=== PATIENT | male | born 1995 | race African-American/Black ===

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

== ENCOUNTER 2017-07-13 15:33 | Emergency (ER) | payer SELFPAY ==
[~2017-07-13] VITALS: Ht 177.8 cm; Wt 88.9 kg
[~2017-07-13 15:33] MED LIST: SUMA100T3; TRAZ150T72
--- OUTSIDE RECORDS SUMMARY | 2017-07-13 15:38 | XMS REPORT ---
Author JIMBO Phelps eClinicalWorks Address Unknown Phone Unavailable Care Team Providers Care Boat Outfitting Supervisor Name Role Phone JIMBO BOYCE CP Unavailable Allergies, Adverse Reactions, Alerts Substance Reaction Event Type N.K.D.A. Info Not Available Non Drug Allergy Problems Problem Type Condition Code Onset Dates Condition Status Problem Attention deficit hyperactivity disorder (ADHD), predominantly inattentive type F90.0 Active Problem Primary insomnia F51.01 Active Problem Encounter for dental examination Z01.20 Active Problem Migraine without aura and without status migrainosus, not intractable G43.009 Active Assessment Encounter for dental examination Z01.20 Active Medications Medication Code System Code Instructions Start Date End Date Status Dosage Methylphenidate HCl [facility] [address]-52 10 mg Orally Twice a day Jul 04, 2016 1 tablet Imitrex [facility] [address]-80 100 MG Orally Once a day Jul 04, 2016 1 tablet as needed Trazodone HCl [facility] [address]-22 150 MG Orally Once a day Jul 04, 2016 1 tablet at bedtime as needed Procedures Procedure Coding System Code Date BITEWINGS - FOUR FILMS CPT-4 D0274 Jul 29, 2016 PANORAMIC FILM SEE ALSO CODE 61059 CPT-4 D0330 Jul 29, 2016 COMP ORAL EVALUATION - NEW/EST PT CPT-4 D0150 Jul 29, 2016 PROPHYLAXIS - ADULT CPT-4 D1110 Jul 29, 2016 PROPHYLAXIS - ADULT CPT-4 D1110 Jul 29, 2016 TOPICAL FLUORIDE VARNISH CPT-4 D1206 Jul 29, 2016 Vital Signs Date/Time: Jul 29, 2016 Blood Pressure Diastolic 63 mmHg Blood Pressure Systolic 107 mmHg Cardiac Monitoring Heart Rate 88 bpm Results No Known Results Summary Purpose eClinicalWorks Submission
--- OUTSIDE RECORDS SUMMARY | 2017-07-13 15:38 | XMS REPORT ---
Author Author ROSY GREER Organization eClinicalWorks Address Unknown Phone Unavailable Care Team Providers Care Sound Effects Supervisor Name Role Phone ROSY GREER CP Unavailable Allergies, Adverse Reactions, Alerts Substance Reaction Event Type N.K.D.A. Info Not Available Non Drug Allergy Problems Problem Type Condition Code Onset Dates Condition Status Problem Primary insomnia F51.01 Active Problem Migraine without aura and without status migrainosus, not intractable G43.009 Active Problem Attention deficit hyperactivity disorder (ADHD), predominantly inattentive type F90.0 Active Assessment Screening examination for sexually transmitted disease Z11.3 Active Medications Medication Code System Code Instructions Start Date End Date Status Dosage Imitrex [facility] [address]-22 100 MG Orally Once a day Jul 04, 2016 1 tablet as needed Trazodone HCl [facility] [address]-55 150 MG Orally Once a day Jul 04, 2016 1 tablet at bedtime as needed Methylphenidate HCl [facility] [address]-24 10 mg Orally Twice a day Jul 04, 2016 1 tablet Procedures Procedure Coding System Code Date Office Visit, Est Pt., Level 3 CPT-4 03982 Jul 14, 2016 VENIPUNCT, ROUTINE* CPT-4 99382 Jul 14, 2016 No Charge CPT-4 52901 Jul 14, 2016 Vital Signs Date/Time: Jul 14, 2016 Cardiac Monitoring Heart Rate 64 bpm Weight 203 lbs Height 70 in Wt Percentile 94.12 % BMI 29.12 Index Blood Pressure Diastolic 82 mmHg Blood Pressure Systolic 132 mmHg BMIPercentile 94.25 % Results Name Result Date Reference Range Unit Abnormality Flag ROUTINE VENIPUNCTURE Summary Purpose eClinicalWorks Submission
--- OUTSIDE RECORDS SUMMARY | 2017-07-13 15:38 | XMS REPORT ---
Author Author YANNA TORRES Organization eClinicalWorks Address Unknown Phone Unavailable Care Team Providers Care Sonoscope Operator Name Role Phone YANNA TORRES CP Unavailable Allergies No Known Allergies Problems Problem Type Condition Code Onset Dates Condition Status Problem Primary insomnia F51.01 Active Problem Migraine without aura and without status migrainosus, not intractable G43.009 Active Problem Attention deficit hyperactivity disorder (ADHD), predominantly inattentive type F90.0 Active Medications Medication Code System Code Instructions Start Date End Date Status Dosage Methylphenidate HCl [facility] [address]-38 10 mg Orally Twice a day Jul 04, 2016 1 tablet Results No Known Results Summary Purpose eClinicalWorks Submission
--- OUTSIDE RECORDS SUMMARY | 2017-07-13 15:38 | XMS REPORT ---
Author Author ROSY GREER Organization [facility] Address [address] [place] [address] Care Team Providers Care Chrome Plater Helper Name Role Phone AMEE GREERISTIN Unavailable PROBLEMS Type Condition ICD9-CM Code HHT14-XW Code Onset Dates Condition Status SNOMED Code Problem Encounter for dental examination Z01.20 Active 361798959 Problem Attention deficit hyperactivity disorder (ADHD), predominantly inattentive type F90.0 Active 51304539 Problem Primary insomnia F51.01 Active 6707519 Problem Migraine without aura and without status migrainosus, not intractable G43.009 Active 653442548 ALLERGIES Substance Reaction Event Type Date Status N.K.D.A. Unknown Non Drug Allergy Sep, Unknown SOCIAL HISTORY No smoking Hx information available PLAN OF CARE Activity Details Follow Up prn Reason: VITAL SIGNS Height 70 in 2016-09-20 Weight 208.0 lbs 2016-09-20 Temperature 98.1 degrees Fahrenheit 2016-09-20 Heart Rate 80 bpm 2016-09-20 Respiratory Rate 18 2016-09-20 BMI 29.84 kg/m2 2016-09-20 Blood pressure systolic 128 mmHg 2016-09-20 Blood pressure diastolic 84 mmHg 2016-09-20 MEDICATIONS Medication Instructions Dosage Frequency Start Date End Date Duration Status Trazodone HCl 150 MG Orally Once a day 1 tablet at bedtime as needed 24h Jul, 30 day(s) Active Imitrex 100 MG Orally Once a day 1 tablet as needed 24h Jul, Active Methylphenidate HCl 10 mg Orally Twice a day 1 tablet 12h Jul, Active Amoxicillin 500 MG Orally every 12 hrs 1 capsule 12h Sep, Sep, 10 day(s) Active RESULTS Name Result Date Reference Range STREP A (IN HOUSE) 2016-09-20 STREP A positive Control + Lot # [id number] Exp date february 16 PROCEDURES Procedure Date Ordered Related Diagnosis Body Site STREP A ASSAY W/OPTIC Sep 20, 2016 Office Visit, Est Pt., Level 3 Sep 20, 2016 IMMUNIZATIONS No Known Immunizations
--- OUTSIDE RECORDS SUMMARY | 2017-07-13 15:38 | XMS REPORT ---
Author Author YANNA TORRES Organization eClinicalWorks Address Unknown Phone Unavailable Care Team Providers Care Dip Painter Name Role Phone YANNA TORRES CP Unavailable Allergies No Known Allergies Problems Problem Type Condition Code Onset Dates Condition Status Problem Primary insomnia F51.01 Active Problem Migraine without aura and without status migrainosus, not intractable G43.009 Active Problem Attention deficit hyperactivity disorder (ADHD), predominantly inattentive type F90.0 Active Medications No Known Medications Results No Known Results Summary Purpose eClinicalWorks Submission
--- OUTSIDE RECORDS SUMMARY | 2017-07-13 15:38 | XMS REPORT ---
Author Author YANNA TORRES Organization eClinicalWorks Address Unknown Phone Unavailable Care Team Providers Care Household Appliance Mechanic Name Role Phone YANNA TORRES CP Unavailable [...] Dosage Trazodone HCl [facility] [address]-47 150 MG Orally Once a day Jul 04, 2016 1 tablet at bedtime as needed Methylphenidate HCl [facility] [address]-19 10 mg Orally Twice a day Jul 04, 2016 1 tablet Imitrex [facility] [address]-59 100 MG Orally Once a day Jul 04, 2016 1 tablet as needed Procedures Procedure Coding System Code Date FLUARIX QUAD P-FREE 3 AND UP .50 2015 CPT-4 47024 Jul 04, 2016 SINGLE IMMUNIZATION ADMIN CPT-4 93987 Jul 04, 2016 Office Visit, Est Pt., Level 3 CPT-4 41341 Jul 04, 2016 Vital Signs Date/Time: Jul [...]
--- OUTSIDE RECORDS SUMMARY | 2017-07-13 15:38 | XMS REPORT ---
Author Author ROSY GREER Organization eClinicalWorks Address Unknown Phone Unavailable Care Team Providers Care Thermite Bomb Loader Name Role Phone ROSY GREER CP Unavailable Allergies, Adverse Reactions, Alerts Substance Reaction Event Type N.K.D.A. Info Not Available Non Drug Allergy Problems Problem Type Condition Code Onset Dates Condition Status Assessment Acute sinusitis, recurrence not specified, unspecified location J01.90 Active Medications Medication Code System Code Instructions Start Date End Date Status Dosage Augmentin [facility] [address]-04 875-125 MG Orally every 12 hrs May 21, 2016 May 31, 2016 1 tablet Procedures Procedure Coding System Code Date Office Visit, Est Pt., Level 3 CPT-4 28423 May 21, 2016 Vital Signs Date/Time: May 21, 2016 Cardiac Monitoring Heart Rate 100 bpm Weight 203.2 lbs Height 70 in Ht Percentile 57.31 % BMI 29.15 Index Blood Pressure Diastolic 90 mmHg Blood Pressure Systolic 140 mmHg BMIPercentile 94.54 % Wt Percentile 94.34 % Results No Known Results Summary Purpose [employer]inical[employer] Submission
== END 2017-07-13 17:42 | disposition left against medical advice (07) ==
LOC: EDUNIT# 15:33 → ER 15:35
DX: J02.9 Acute pharyngitis, unspecified (principal); J34.89 Other specified disorders of nose and nasal sinuses; R05 Cough
CPT/HCPCS: 99281

== ENCOUNTER 2017-11-13 07:28 | Emergency (ER) | payer SELFPAY ==
[~2017-11-13] VITALS: Ht 177.8 cm; Wt 90.7 kg
--- NOTE | 2017-11-13 08:44 | Diagnostic Imaging Report ---
Indication: Fall with left ankle pain. AP, oblique, and lateral views of the left ankle are obtained Findings: A tiny calcification is present just medial to the medial malleolus of the distal tibia, which may represent a tiny accessory ossicle or avulsion. This finding is of uncertain age. There is no other bony abnormality. Joint spaces are unremarkable. Impression: Tiny calcification medial to the medial malleolus of the distal tibia, this may represent a small accessory ossicle or tiny avulsion of uncertain age. No other abnormal findings, correlate with clinical findings. Dictated by: Dictated on workstation # [id number]
--- NOTE | 2017-11-13 10:03 | ED Lower Extremity ---
General Chief Complaint: Lower Extremity Stated Complaint: LEFT ANKLE INJ Nursing Triage Note: Pt c/o L ankle pain after falling yesterday Nursing Sepsis Screen: No Definite Risk Source: patient Exam Limitations: no limitations History of Present Illness Date Seen by Provider: Nov 13, 2017 Time Seen by Provider: 09:45 Initial Comments Patient presents to ER by private conveyance with a chief complaint that yesterday before going to work he fell down the steps on some ice and twisted his left ankle. He's not had any previous injury to his left ankle although he has twisted his right ankle the past putting football. He's having pain little bit of swelling and has not taken any Tylenol or Motrin yet. He did put some ice on it today. He went to work anyways and said it was very painful and had difficulty putting his full power to his foot but he was able to stand on it. Allergies and Home Medications Allergies Coded Allergies: No Known Drug Allergies (Unverified , 10/20/16) Home Medications Sumatriptan Succinate 100 Mg Tablet, #9 (Reported) Trazodone HCl 150 Mg Tablet, #30 (Reported) Constitutional: No chills Respiratory: No cough, No short of breath Cardiovascular: No chest pain, No palpitations Gastrointestinal: No constipation, No diarrhea, No nausea Past Cgedziy-Urfxfv-Pywlqo Hx Patient Social History Alcohol Use: Denies Use Recreational Drug Use: No Recent Foreign Travel: No Contact w/Someone Who Travel: No Recent Infectious Disease Expo: No Recent Hopitalizations: No Surgeries Surgeries: Adenoidectomy, Tonsillectomy Neurological Neurological Disorders: Headaches /Migraines Physical Exam Vital Signs Vital Signs - First Documented 11/13/17 07:54 Temp 98.5 Pulse 78 Resp 18 B/P (MAP) 127/71 (89) Capillary Refill : Less Than 3 Seconds General Appearance: WD/WN, no apparent distress HEENT: PERRL/EOMI, pharynx normal Respiratory: no respiratory distress, no accessory muscle use Back: normal inspection, no vertebral tenderness Hips: bilateral hip non-tender, bilateral hip normal inspection, bilateral hip normal range of motion, bilateral hip no evidence of injury Legs: bilateral leg non-tender, bilateral leg normal inspection, bilateral leg normal range of motion, bilateral leg no evidence of injury Knees: bilateral knee non-tender, bilateral knee normal inspection, bilateral knee normal range of motion, bilateral knee no evidence of injury Ankles: right ankle non-tender, bilateral ankle normal inspection, right ankle normal range of motion, right ankle no evidence of injury, left ankle bone tenderness, left ankle pain, left ankle soft tissue tenderness Feet: bilateral foot non-tender, bilateral foot normal inspection, bilateral foot normal range of motion, bilateral foot no evidence of injury Neurologic/Psychiatric: no motor/sensory deficits, alert, normal mood/affect, oriented x 3 Skin: normal color, warm/dry Progress/Results/Core Measures Results/Orders My Orders Orders - GERHARD QUICK Ankle, Left, 3 Views (11/13/17 08:21) Vital Signs/I&O Vital Sign - Last 12Hours 11/13/17 07:54 Temp 98.5 Pulse 78 Resp 18 B/P (MAP) 127/71 (89) Blood Pressure Mean: 89 Diagnostic Imaging Diagonstic Imaging: Xray Plain Films/CT/US/NM/MRI: ankle Comments [place] NAME: RUDI GRACIA [facility] REC#: [id number] PT STATUS: REG ER : 1995 PHYSICIAN: GERHARD QUICK MD ADMIT DATE: 11/13/17/ER Draft Date of Exam:11/13/17 ANKLE, LEFT, 3 VIEWS Indication: Fall with left ankle pain. AP, oblique, and lateral views of the left ankle are obtained Findings: A tiny calcification is present just medial to the medial malleolus of the distal tibia, which may represent a tiny accessory ossicle or avulsion. This finding is of uncertain age. There is no other bony abnormality. Joint spaces are unremarkable. Impression: Tiny calcification medial to the medial malleolus of the distal tibia, this may represent a small accessory ossicle or tiny avulsion of uncertain age. No other abnormal findings, correlate with clinical findings. Dictated on workstation # [id number] Dict: 11/13/1737 Trans: 11/13/17 0843 [facility] [id number] Interpreted by: AIXA GIBBS MD Electronically signed by: Reviewed: Reviewed by Me Departure Impression Impression: Primary Impression: Ankle sprain Qualified Codes: S93.402A - Sprain of unspecified ligament of left ankle, initial encounter Disposition: HOME, SELF-CARE Condition: Stable Departure-Patient Inst. Decision time for Depature: 10:01 Referrals: NO,LOCAL PHYSICIAN (PCP/Family) Primary Care Physician Patient Instructions: Ankle Sprain (DC) Add. Discharge Instructions: Apply ice for 20 minutes for the every 4 hour for the first couple days. Use Tylenol 1000 mg every 8 hours and ibuprofen 800 mg every 8 hours for pain. Keep the foot elevated when possible. He is a compressive wrap such as Ángel bandage or a neoprene ankle sleeve. Wear the air splint for the first week or 2. Use the crutches as needed for the first week or 2 do partial weightbearing. Do light duty at work for the next 2 weeks. If your pain is not improved or you still feels like you cannot put any weight on it by 10-14 days out then you should follow-up with a primary care physician or you can return to urgent care for reexamination and consider doing imaging looking for possible missed fractures in the foot. All discharge instructions reviewed with patient and/or family. Voiced understanding. Work/School Note: Work Release Form Date Seen in the Emergency Department: Nov 13, 2017 Return to Work: Nov 14, 2017 Restrictions: Follow Up With [facility] Other Restrictions Listed Below: Partial weightbearing left ankle. Light duty or work off his feet x 2 weeks Restrictions: Air splint and crutches for 1-2 weeks GERHARD QUICK Nov 13, 2017 10:03
[2017-11-13 10:11] VITALS: BP 127/71
== END 2017-11-13 10:11 | disposition home or self-care (01) ==
LOC: EDUNIT# 07:28 → ER 07:30
DX: S93.402A Sprain of unspecified ligament of left ankle, initial encounter (principal); G43.909 Migraine, unspecified, not intractable, without status migrainosus; Z90.89 Acquired absence of other organs; W10.9XXA Fall (on) (from) unspecified stairs and steps, initial encounter
CPT/HCPCS: 73610; 99283

== ENCOUNTER 2018-11-21 12:15 | Emergency (ER) | payer SELFPAY ==
[~2018-11-21] VITALS: Ht 177.8 cm; Wt 84.4 kg
[2018-11-21] MEDS ORDERED: metroNIDAZOLE 500MG/100ML IVPB 100 ML IV ONE (12:30)
[2018-11-21] MEDS ORDERED: KETOROLAC 30 MG/ML VIAL IVP ONE (12:30)
[2018-11-21] MEDS ORDERED: ONDANSETRON 4 MG/2 ML (SDV) Z0FRAN IVP ONE (12:30)
[2018-11-21] MEDS ORDERED: ONDANSETRON 4 MG/2 ML (SDV) Z0FRAN IV PRN (12:30)
[2018-11-21] MEDS ORDERED: NS IV 1000 ML 2,000 ML IV ONE (12:30)
[2018-11-21] MEDS ORDERED: cefTRIAXone FOR IV USE 1,000 MG in WATER (STERILE) FOR INJECTION 10 ML IV ONE (12:30)
--- NOTE | 2018-11-21 12:34 | ED Abdominal Pain ---
General Stated Complaint: FEVER;VOMITING Source of Information: Patient, Family Exam Limitations: No Limitations History of Present Illness Date Seen by Provider: Nov 21, 2018 Time Seen by Provider: 12:17 Initial Comments The patient presents to ER by private conveyance with family and chief complaint for the past 3 days now he's been experiencing abdominal pain all over , nausea vomiting chills and subjective fever. Hematologic urgent care yesterday and they told him they thought he might have a virus and did not give him any nausea medicine or you have any blood work. He's not having any dysuria. He denies discharge or dyspareunia. No trauma. No history of abdominal surgeries. No sick contacts. He does have an occasional cough. Allergies and Home Medications Allergies Coded Allergies: No Known Drug Allergies (Unverified , 10/20/16) Home Medications No Active Prescriptions or Reported Meds Patient Home Medication List Home Medication List Reviewed: Yes Review of Systems Review of Systems Constitutional: chills, fever, malaise EENTM: No Blurred Vision, No Double Vision Respiratory: Cough; Denies Shortness of Air Cardiovascular: Denies Chest Pain, Denies Edema Gastrointestinal: See HPI; Denies Abdomen Distended; Abdominal Pain, Diarrhea, Nausea, Poor Appetite, Poor Fluid Intake, Vomiting Genitourinary: Denies Burning, Denies Discharge Musculoskeletal: No back pain, No joint pain Past Pvckxul-Gwwznd-Zoznxf Hx Patient Social History Alcohol Use: Denies Use Recreational Drug Use: No Smoking Status: Current Everyday Smoker Type Used: Cigarettes (1-2 cigarettes per week) Recent Hopitalizations: No Seasonal Allergies Seasonal Allergies: No Past Medical History Surgeries: Yes Adenoidectomy, Tonsillectomy Respiratory: No Cardiac: No Neurological: Yes Headaches /Migraines Gastrointestinal: No Musculoskeletal: No Endocrine: No Cancer: No Psychosocial: No Integumentary: No Blood Disorders: No Physical Exam Vital Signs Vital Signs - First Documented 11/21/18 12:35 Temp 102.3 Pulse 98 Resp 14 B/P (MAP) 126/85 (99) Pulse Ox 99 Capillary Refill : Height/Weight/BMI Height: 5'10.00" Weight: 200lbs. oz. 90.281266gu; 28.12 BMI Method:Stated General Appearance: WD/WN, moderate distress HEENT: PERRL/EOMI, normal ENT inspection, pharynx normal Respiratory: lungs clear, normal breath sounds, no respiratory distress, no accessory muscle use Cardiovascular: normal peripheral pulses, regular rate, rhythm, no edema, tachycardia Peripheral Pulses: 2+ Radial Pulses (R), 2+ Radial Pulses (L) Gastrointestinal: normal bowel sounds; No guarding, No rebound; tenderness ( all 4 quadrants. Negative for Root sign. Negative psoas signs. ) Extremities: normal range of motion, normal capillary refill Focused Exam Lactate Level 11/21/18 12:29: Lactic Acid Level 1.87 Lactic Acid Level Laboratory Tests Test 11/21/18 12:29 Lactic Acid Level 1.87 MMOL/L (0.50-2.00) Progress/Results/Core Measures Results/Orders Lab Results Laboratory Tests Test 11/21/18 12:29 Range/Units White Blood Count 3.4 L 4.3-11.0 10^3/uL Red Blood Count 5.01 4.35-5.85 10^6/uL Hemoglobin 15.7 13.3-17.7 G/DL Hematocrit 45 40-54 % Mean Corpuscular Volume 91 80-99 FL Mean Corpuscular Hemoglobin 31 25-34 PG Mean Corpuscular Hemoglobin Concent 35 32-36 G/DL Red Cell Distribution Width 12.2 10.0-14.5 % Platelet Count 135 130-400 10^3/uL Mean Platelet Volume 10.9 H 7.4-10.4 FL Neutrophils (%) (Auto) 60 42-75 % Lymphocytes (%) (Auto) 15 12-44 % Monocytes (%) (Auto) 25 H 0-12 % Eosinophils (%) (Auto) 0 0-10 % Basophils (%) (Auto) 0 0-10 % Neutrophils # (Auto) 2.1 1.8-7.8 X 10^3 Lymphocytes # (Auto) 0.5 L 1.0-4.0 X 10^3 Monocytes # (Auto) 0.9 0.0-1.0 X 10^3 Eosinophils # (Auto) 0.0 0.0-0.3 10^3/uL Basophils # (Auto) 0.0 0.0-0.1 10^3/uL Neutrophils % (Manual) 65 % Lymphocytes % (Manual) 10 % Monocytes % (Manual) 17 % Eosinophils % (Manual) 0 % Basophils % (Manual) 1 % Band Neutrophils 6 % Reactive Lymphocytes 1 % Blood Morphology Comment NORMAL Prothrombin Time 17.2 H 12.2-14.7 SEC INR Comment 1.4 0.8-1.4 Activated Partial Thromboplast Time 50 H 24-35 SEC Sodium Level 133 L 135-145 MMOL/L Potassium Level 3.4 L 3.6-5.0 MMOL/L Chloride Level 103 98-107 MMOL/L Carbon Dioxide Level 20 L 21-32 MMOL/L Anion Gap 10 5-14 MMOL/L Blood Urea Nitrogen 10 7-18 MG/DL Creatinine 1.16 0.60-1.30 MG/DL Estimat Glomerular Filtration Rate > 60 BUN/Creatinine Ratio 9 Glucose Level 111 H 70-105 MG/DL Lactic Acid Level 1.87 0.50-2.00 MMOL/L Calcium Level 9.1 8.5-10.1 MG/DL Corrected Calcium 8.9 8.5-10.1 MG/DL Total Bilirubin 0.6 0.1-1.0 MG/DL Aspartate Amino Transf (AST/SGOT) 37 H 5-34 U/L Alanine Aminotransferase (ALT/SGPT) 18 0-55 U/L Alkaline Phosphatase 84 40-136 U/L Total Protein 7.3 6.4-8.2 GM/DL Albumin 4.3 3.2-4.5 GM/DL Lipase 39 8-78 U/L Micro Results Microbiology 11/21/18 Influenza Types A,B Antigen (NITZA) - Final, Complete My Orders Orders - GERHARD QUICK Cbc With Automated Diff (11/21/18 12:24) Comprehensive Metabolic Panel (11/21/18 12:24) Blood Culture (11/21/18 12:24) Sputum Culture (11/21/18 12:24) Urinalysis (11/21/18 12:24) Urine Culture (11/21/18 12:24) Protime With Inr (11/21/18 12:24) Partial Thromboplastin Time (11/21/18 12:24) Chest 1 View, Ap/Pa Only (11/21/18 12:24) Saline Lock/Iv-Start (11/21/18 12:24) Saline Lock/Iv-Start (11/21/18 12:24) Vital Signs Adult Sepsis Patie Q15M (11/21/18 12:24) Ondansetron Injection (Zofran Injectio (11/21/18 12:30) O2 (11/21/18 12:24) Remove Rings In Anticipation O (11/21/18 12:24) Lactic Acid Analyzer (11/21/18 12:24) Influenza A And B Antigens (11/21/18 12:24) Ns Iv 1000 Ml (Sodium Chloride 0.9%) (11/21/18 12:30) Ceftriaxone For Iv Use (Rocephin For I (11/21/18 12:30) Lipase (11/21/18 12:24) Metronidazole 500mg/100ml Ivpb (Flagyl 5 (11/21/18 12:30) Ondansetron Injection (Zofran Injectio (11/21/18 12:30) Ketorolac Injection (Toradol Injection) (11/21/18 12:30) Drug Screen Stat (Urine) (11/21/18 12:34) Manual Differential (11/21/18 12:29) Medications Given in ED Current Medications Medications Dose Ordered Sig/Christy Route Start Time Stop Time Status Last Admin Dose Admin Ceftriaxone Sodium 1000 mg/ Sterile Water 10 ml @ 200 mls/hr ONCE ONCE IV 11/21/18 12:30 11/21/18 12:32 DC 11/21/18 13:33 200 MLS/HR Ketorolac Tromethamine 30 mg ONCE ONCE IVP 11/21/18 12:30 11/21/18 12:31 DC 11/21/18 12:53 30 MG Ondansetron HCl 4 mg ONCE ONCE IVP 11/21/18 12:30 11/21/18 12:31 DC 11/21/18 12:53 4 MG Sodium Chloride 2,000 ml @ 2,000 mls/hr ONCE ONCE IV 11/21/18 12:30 11/21/18 13:29 DC 11/21/18 12:52 2,000 MLS/HR Vital Signs/I&O 11/21/18 12:35 Temp 102.3 Pulse 98 Resp 14 B/P (MAP) 126/85 (99) Pulse Ox 99 Progress Progress Note : Time: 12:33 Progress Note Diffuse abdominal tenderness, tachycardic and a fever 102. We'll get a septic workup to include influenza urine and urine drug screen. Could be viral gastroenteritis versus colitis/appendicitis etc. Check a lipase. Diagnostic Imaging Diagonstic Imaging: Xray Plain Films/CT/US/NM/MRI: chest (1v) Comments NAME: RUDI GRACIA [facility] REC#: [id number] PHYSICIAN: GERHARD QUICK MD CC: ERICKA SIMMS DO; GERHARD QUICK Page 1 of 1 RADIOLOGY REPORT [facility] [place] CC: ERICKA SIMMS DO; GERHARD QUICK Page 1 of 1 RADIOLOGY REPORT NAME: RUDI GRACIA [facility] REC#: [id number] PT STATUS: REG ER : 1995 PHYSICIAN: GERHARD QUICK MD ADMIT DATE: 11/21/18/ER Signed Date of Exam: 11/21/18 CHEST 1 VIEW, AP/PA ONLY INDICATION: Fever, vomiting, diarrhea x3 days. Positive for influenza.. TECHNIQUE: Single view chest 1:04 PM. CORRELATION STUDY: None FINDINGS: The heart size and pulmonary vascularity are within normal limits. Hilar structures do produce slightly prominent. No definitive consolidating infiltrate. IMPRESSION: 1. Slight prominent appearance of the hilar structures. Definitive consolidating infiltrate is not suggested at this time. However, early developing infiltrate would be somewhat difficult to exclude. Followup imaging as clinically warranted. Dictated by: Dictated on workstation # [id number] Dict: 11/21/18 1311 Trans: 11/21/18 1313 Interpreted by: ERICKA SIMMS DO Electronically signed by: ERICKA SIMMS DO 11/21/18 1313 Reviewed: Reviewed by Me Departure Impression Primary Impression: Influenza A Disposition: 01 HOME, SELF-CARE Condition: Improved Departure-Patient Inst. Decision time for Depature: 13:42 Referrals: NO,LOCAL PHYSICIAN (PCP/Family) Primary Care Physician Patient Instructions: Flu, Adult (DC) Add. Discharge Instructions: Drink plenty of fluids especially sports drinks. Use Tylenol 1000 mg and ibuprofen 800 mg as needed for body aches or fevers. Expect to be sick up to 2 weeks. If not improving by then you should follow-up with primary care for reevaluation. If you're having nausea use the Zofran 1 tablet every 6 hours as needed. If your diarrhea last for more than 2 days then start taking 2 tablets of Imodium followed by one tablet every 4 hours afterwards that you have a watery stool. Scripts Ondansetron (Ondansetron Odt) 4 Mg Tab.rapdis 4 MG PO Q6H PRN for NAUSEA/VOMITING, #12 TAB 0 Refills Prov: GERHARD QUICK 11/21/18 Work/School Note: Work Release Form Date Seen in the Emergency Department: Nov 21, 2018 Return to Work: Nov 27, 2018 Restrictions: Return-No Fever (24hrs) GERHARD QUICK Nov 21, 2018 12:34
[2018-11-21 12:54] LABS: BASOPHILS % (AUTO) 0 % (0-10); EOSINOPHILS % (AUTO) 0 % (0-10); HEMATOCRIT 45 % (40-54); HEMOGLOBIN 15.7 G/DL (13.3-17.7); LYMPHOCYTES # (AUTO) 0.5 X 10^3 (1.0-4.0); LYMPHOCYTES % (AUTO) 15 % (12-44); MEAN CORPUSCULAR HEMOGLOBIN 31 PG (25-34); MEAN CORPUSCULAR HGB CONC 35 G/DL (32-36); MEAN CORPUSCULAR VOLUME 91 FL (80-99); MEAN PLATELET VOLUME 10.9 FL (7.4-10.4); MONOCYTES # (AUTO) 0.9 X 10^3 (0.0-1.0); MONOCYTES % (AUTO) 25 % (0-12); NEUTROPHILS # (AUTO) 2.1 X 10^3 (1.8-7.8); NEUTROPHILS % (AUTO) 60 % (42-75); PLATELET COUNT 135 10^3/uL (130-400); RED CELL DISTRIBUTION WIDTH 12.2 % (10.0-14.5); WHITE BLOOD COUNT 3.4 10^3/uL (4.3-11.0)
[2018-11-21 13:03] LABS: INR 1.4 (0.8-1.4); PROTHROMBIN TIME PATIENT 17.2 SEC (12.2-14.7)
[2018-11-21 13:13] LABS: ALANINE AMINOTRANSFERASE 18 U/L (0-55); ALBUMIN 4.3 GM/DL (3.2-4.5); ALKALINE PHOSPHATASE 84 U/L (40-136); BILIRUBIN,TOTAL 0.6 MG/DL (0.1-1.0); BUN/CREATININE RATIO 9; CALCIUM 9.1 MG/DL (8.5-10.1); CARBON DIOXIDE 20 MMOL/L (21-32); CHLORIDE 103 MMOL/L (98-107); CREATININE SERUM 1.16 MG/DL (0.60-1.30); GFR ESTIMATED > 60; GLUCOSE 111 MG/DL (70-105); LIPASE 39 U/L (8-78); POTASSIUM 3.4 MMOL/L (3.6-5.0); SODIUM 133 MMOL/L (135-145); TOTAL PROTEIN 7.3 GM/DL (6.4-8.2)
[2018-11-21 13:14] LABS: BAND NEUTROPHILS 6 %; BASOPHILS % (MANUAL) 1 %; EOSINOPHILS % (MANUAL) 0 %; LYMPHOCYTES % (MANUAL) 10 %; MONOCYTES % (MANUAL) 17 %; NEUTROPHILS % (MANUAL) 65 %; RBC MORPH NORMAL; REACTIVE LYMPHOCYTES 1 %
--- NOTE | 2018-11-21 13:16 | Diagnostic Imaging Report ---
INDICATION: Fever, vomiting, diarrhea x3 days. Positive for influenza.. TECHNIQUE: Single view chest 1:04 PM. CORRELATION STUDY: None FINDINGS: The heart size and pulmonary vascularity are within normal limits. Hilar structures do produce slightly prominent. No definitive consolidating infiltrate. IMPRESSION: 1. Slight prominent appearance of the hilar structures. Definitive consolidating infiltrate is not suggested at this time. However, early developing infiltrate would be somewhat difficult to exclude. Followup imaging as clinically warranted. Dictated by: Dictated on workstation # [id number]
[2018-11-21] MEDS ORDERED: ONDA4TAB11 PO (13:45)
[2018-11-21 14:01] VITALS: BP 123/74
== END 2018-11-21 14:01 | disposition home or self-care (01) ==
LOC: EDUNIT# 12:15 → ER 12:16
DX: J10.1 Influenza due to other identified influenza virus with other respiratory manifestations (principal); G43.909 Migraine, unspecified, not intractable, without status migrainosus; F17.210 Nicotine dependence, cigarettes, uncomplicated; Z90.89 Acquired absence of other organs
CPT/HCPCS: 36415; 71045; 80053; 83605; 83690; 85007; 85027; 85610; 85730; 87040; 87804

== ENCOUNTER 2019-03-12 08:26 | Emergency (ER) | payer SELFPAY ==
[~2019-03-12] VITALS: Ht 177.8 cm; Wt 89.8 kg
[~2019-03-12 08:26] MED LIST changes: +ONDA4TAB11 PO
--- NOTE | 2019-03-12 08:51 | ED GU-Female ---
General Chief Complaint: General Problems/Pain Stated Complaint: "INFECTION ON PRIVATE AREA" Nursing Triage Note: PT AMB TO [facility] 10 WITH COMPLAINT OF BUMPS IN GENITAL AREA. STATES BUMPS STARTED 4-5 DAYS AGO. STATES WAS RECENTLY DIAGNOSED WITH CHLAMYDIA. Nursing Sepsis Screen: No Definite Risk Source: patient, family History of Present Illness Date Seen by Provider: Mar 12, 2019 Time Seen by Provider: 08:30 Initial Comments Patient presents to ER by private conveyance with chief complaint of some sores on the end of his penis started off as blisters that are painful and not draining. He says recently his went to the disc pad plate filler because she is and discovered she had chlamydia and he wants checked out. He denies any penile discharge, dysuria fevers chills or joint aches. No significant medical history. Allergies and Home Medications Allergies Coded Allergies: No Known Drug Allergies (Unverified , 10/20/16) Home Medications Ondansetron 4 Mg Tab.rapdis, 4 MG PO Q6H PRN for NAUSEA/VOMITING Prescribed by: GERHARD QUICK on 11/21/18 3345 Patient Home Medication List Home Medication List Reviewed: Yes Review of Systems Review of Systems Constitutional: No chills, No fever, No malaise EENTM: No ear discharge, No hearing loss, No ear pain Respiratory: No cough, No short of breath Cardiovascular: No chest pain, No edema Gastrointestinal: No abdominal pain, No nausea, No vomiting Genitourinary: see HPI; denies discharge, denies dysuria Musculoskeletal: No back pain, No joint pain Skin: No pruritus, No rash Past Rcdvaes-Jyplch-Tdtnzp Hx Patient Social History Alcohol Use: Denies Use Recreational Drug Use: Yes Drug of Choice: MARIJUANA Smoking Status: Current Everyday Smoker Type Used: Cigarettes Recent Foreign Travel: No Contact w/Someone Who Travel: No Recent Infectious Disease Expo: No Recent Hopitalizations: No Immunizations Up To Date Tetanus Booster (TDap): Unknown PED Vaccines UTD: Yes Seasonal Allergies Seasonal Allergies: No Past Medical History Surgeries: Yes Adenoidectomy, Tonsillectomy Respiratory: No Cardiac: No Neurological: Yes Headaches /Migraines Genitourinary: No Gastrointestinal: No Musculoskeletal: No Endocrine: No Cancer: No Psychosocial: No Integumentary: No Blood Disorders: No Physical Exam Vital Signs Vital Signs - First Documented 03/12/19 08:39 Temp 98.0 Pulse 88 Resp 20 B/P (MAP) 140/93 (109) Pulse Ox 100 O2 Delivery Room Air Capillary Refill : Less Than 3 Seconds Height, Weight, BMI Height: 5'10.00" Weight: 198lbs. oz. 89.791358zb; 28.12 BMI Method:Stated General Appearance: WD/WN, no apparent distress Cardiovascular: normal peripheral pulses, regular rate, rhythm Respiratory: no respiratory distress, no accessory muscle use Gastrointestinal: normal bowel sounds, non tender Genital/Rectal: other (no discharge from the penis. Glans normal. The foreskin has 2 mostly healed shallow ulcerations that are slightly tender to palpation without discharge. No erythema or induration.) Progress/Results/Core Measures Suspected Sepsis Recent Fever Within 48 Hours: No Infection Criteria Present: None New/Unexplained Altered Menta: No Sepsis Screen: No Definite Risk SIRS Temperature:98.0 Pulse: 88 Respiratory Rate: 20 Blood Pressure 140 /93 Mean: 109 Results/Orders Lab Results Laboratory Tests Test 03/12/19 08:45 Range/Units Urine Color YELLOW Urine Clarity CLEAR Urine pH 8 5-9 Urine Specific [place] 1.010 L 1.016-1.022 Urine Protein NEGATIVE NEGATIVE Urine Glucose (UA) NEGATIVE NEGATIVE Urine Ketones NEGATIVE NEGATIVE Urine Nitrite NEGATIVE NEGATIVE Urine Bilirubin NEGATIVE NEGATIVE Urine Urobilinogen NORMAL NORMAL MG/DL Urine Leukocyte Esterase 1+ H NEGATIVE Urine RBC (Auto) NEGATIVE NEGATIVE Urine RBC NONE /HPF Urine WBC 10-25 H /HPF Urine Squamous Epithelial Cells 2-5 /HPF Urine Crystals NONE /LPF Urine Bacteria TRACE /HPF Urine Casts NONE /LPF Urine Mucus NEGATIVE /LPF Urine Culture Indicated NO My Orders Orders - GERHARD QUICK Reinaldo Dna Urine Test (03/12/19 08:49) Chlamydia Trachomatis Urine (03/12/19 08:49) Ua Culture If Indicated (03/12/19 08:49) Syphilis Antibody Screen (03/12/19 08:58) Ceftriaxone For Im Use (Rocephin For Im (03/12/19 09:15) Azithromycin Tablet (Zithromax Tablet) (03/12/19 09:15) Lidocaine 1% Inj 20 Ml (Xylocaine 1% Inj (03/12/19 09:15) Medications Given in ED Current Medications Medications Dose Ordered Sig/Christy Route Start Time Stop Time Status Last Admin Dose Admin Azithromycin 1,000 mg ONCE ONCE PO 03/12/19 09:15 03/12/19 09:16 03/12/19 09:13 1,000 MG Ceftriaxone Sodium 250 mg ONCE ONCE IM 03/12/19 09:15 03/12/19 09:16 03/12/19 09:13 250 MG Lidocaine HCl 0.9 ml ONCE ONCE INJ 03/12/19 09:15 03/12/19 09:16 03/12/19 09:14 0.9 ML Vital Signs/I&O 03/12/19 08:39 Temp 98.0 Pulse 88 Resp 20 B/P (MAP) 140/93 (109) Pulse Ox 100 O2 Delivery Room Air Capillary Refill : Less Than 3 Seconds Blood Pressure Mean: 109 Progress Note : Time: 09:00 Progress Note HSV 1 and 2 swab on the lesions. The lesions are rather to her however and there are no vesicles or drainage detected. Urine specimen for urinalysis, GC, chlamydia and a syphilis antibody screen. Departure Impression Primary Impression: Urinary tract infection Qualified Codes: N30.00 - Acute cystitis without hematuria Disposition: HOME, SELF-CARE Condition: Stable Departure-Patient Inst. Decision time for Depature: 09:15 Referrals: NO,LOCAL PHYSICIAN (PCP/Family) Primary Care Physician Patient Instructions: Urinary Tract Infection, Adult (DC) Add. Discharge Instructions: We'll reduce some antibiotics for the next week. We'll give you a phone call in the next week if any of your tests come positive. Follow-up with primary care as necessary. All discharge instructions reviewed with patient and/or family. Voiced understanding. Scripts Cephalexin (Cephalexin) 500 Mg Tablet 500 MG PO BID, #14 TAB 0 Refills Prov: GERHARD QUICK 03/12/19 Work/School Note: Work Release Form Date Seen in the Emergency Department: Mar 12, 2019 Return to Work: Mar 13, 2019 Restrictions: No Restrictions GERHARD QUICK Mar 12, 2019 08:51
[2019-03-12 09:01] LABS: BILIRUBIN,URINE NEGATIVE (NEGATIVE); CLARITY,URINE CLEAR; COLOR,URINE YELLOW; GLUCOSE, URINE (UA) NEGATIVE (NEGATIVE); KETONES,URINE NEGATIVE (NEGATIVE); LEUKOCYTE ESTERASE ,URINE 1+ (NEGATIVE); NITRITE,URINE NEGATIVE (NEGATIVE); PH,URINE 8 (5-9); PROTEIN,URINE NEGATIVE (NEGATIVE); UROBILINOGEN,URINE NORMAL (NORMAL)
[2019-03-12 09:10] LABS: BACTERIA,URINE TRACE /HPF
[2019-03-12] MEDS ORDERED: LIDOCAINE 1% INJ 20 ML 20 ML VIAL INJ ONE (09:15)
[2019-03-12] MEDS ORDERED: cefTRIAXone 250 MG/ML vial (IM ONLY) IM ONE (09:15)
[2019-03-12] MEDS ORDERED: AZITHROMYCIN 250 MG TAB (ZITHROMAX) PO ONE (09:15)
[2019-03-12] MEDS ORDERED: CEPH500T PO (09:19)
[2019-03-12 09:30] VITALS: BP 140/93
== END 2019-03-12 09:30 | disposition home or self-care (01) ==
LOC: EDUNIT# 08:26 → ER 08:27
DX: N39.0 Urinary tract infection, site not specified (principal); G43.909 Migraine, unspecified, not intractable, without status migrainosus; F12.10 Cannabis abuse, uncomplicated; F17.210 Nicotine dependence, cigarettes, uncomplicated; Z90.89 Acquired absence of other organs
CPT/HCPCS: 36415; 81000; 86780; 87254; 87491; 87529; 87591; 96372; 99284

== ENCOUNTER 2020-06-07 06:17 | Emergency (ER) | payer SELFPAY ==
[~2020-06-07] VITALS: Ht 180.3 cm; Wt 107.7 kg
[~2020-06-07 06:17] MED LIST changes: +CEPH500T PO
--- NOTE | 2020-06-07 07:24 | ED Lower Extremity ---
General Chief Complaint: Lower Extremity Stated Complaint: RT ANKLE INJ Source: patient Exam Limitations: no limitations History of Present Illness Date Seen by Provider: Jun 07, 2020 Time Seen by Provider: 07:15 Initial Comments The patient presents ER by private conveyance from home with chief complaint she denies any sleep all night because he rolled his right ankle yesterday at football practice. He's having pain on his medial side. He was unable to walk on it and immediately after the injury nor is he able to walk on it and put weight on it now. No previous history of injury or fracture. Allergies and Home Medications Allergies Coded Allergies: No Known Drug Allergies (Unverified , 10/20/16) Home Medications Cephalexin 500 Mg Tablet, 500 MG PO BID Prescribed by: GERHARD QUICK on 03/12/19 0919 Ondansetron 4 Mg Tab.rapdis, 4 MG PO Q6H PRN for NAUSEA/VOMITING Prescribed by: GERHARD QUICK on 11/21/18 1345 Patient Home Medication List Home Medication List Reviewed: Yes Review of Systems Constitutional: No chills, No fever EENTM: No ear pain, No eye pain Respiratory: No cough, No phlegm Cardiovascular: No chest pain, No edema Gastrointestinal: No abdominal pain, No vomiting Genitourinary: No discharge, No dysuria Musculoskeletal: see HPI; No back pain; joint pain All Other Systems Reviewed Negative Unless Noted: Yes Past Ohjaajl-Oxritn-Fqnshm Hx Patient Social History Alcohol Use: Denies Use Recreational Drug Use: Yes Drug of Choice: MARIJUANA Smoking Status: Current Everyday Smoker Type Used: Cigarettes Recent Foreign Travel: No Contact w/Someone Who Travel: No Recent Hopitalizations: No Immunizations Up To Date Tetanus Booster (TDap): Unknown PED Vaccines UTD: Yes Seasonal Allergies Seasonal Allergies: No Past Medical History Surgeries: Yes Adenoidectomy, Tonsillectomy Respiratory: No Cardiac: No Neurological: Yes Headaches /Migraines Genitourinary: No Gastrointestinal: No Musculoskeletal: No Endocrine: No Cancer: No Psychosocial: No Integumentary: No Blood Disorders: No Physical Exam Vital Signs Vital Signs - First Documented 06/07/20 07:01 Temp 36.5 Pulse 82 Resp 18 B/P (MAP) 152/112 (125) Pulse Ox 98 Capillary Refill : Height, Weight, BMI Height: 5'10.00" Weight: 198lbs. oz. 89.792376rg; 28.12 BMI Method:Stated General Appearance: WD/WN, mild distress HEENT: PERRL/EOMI, pharynx normal Cardiovascular: normal peripheral pulses, regular rate, rhythm, no edema Respiratory: no respiratory distress, no accessory muscle use Legs: bilateral leg non-tender, bilateral leg normal inspection, bilateral leg normal range of motion, bilateral leg no evidence of injury Ankles: left ankle non-tender, left ankle normal inspection; bilateral ankle normal range of motion; left ankle no evidence of injury; right ankle bone tenderness (posterior medial malleoli), right ankle joint effusion (mild), right ankle pain, right ankle swelling (mild) Feet: bilateral foot non-tender, bilateral foot normal inspection, bilateral foot normal range of motion, bilateral foot no evidence of injury Neurologic/Tendon: normal sensation, normal motor functions, normal tendon functions, responds to pain, no evidence tendon injury Neurologic/Psychiatric: alert, normal mood/affect, oriented x 3 Skin: normal color, warm/dry Progress/Results/Core Measures Results/Orders My Orders Orders - GERHARD QUICK Ankle, Right, 3 Views (06/07/20 07:22) Ketorolac Injection (Toradol Injection) (06/07/20 07:30) Medications Given in ED Current Medications Medications Dose Ordered Sig/Christy Route Start Time Stop Time Status Last Admin Dose Admin Ketorolac Tromethamine 60 mg ONCE ONCE IM 06/07/20 07:30 06/07/20 07:31 DC 06/07/20 07:29 60 MG Vital Signs/I&O 06/07/20 07:01 Temp 36.5 Pulse 82 Resp 18 B/P (MAP) 152/112 (125) Pulse Ox 98 Progress Progress Note : Time: 07:28 Progress Note Belt ankle rules dictates that he needs an x-ray to rule out ankle fracture. Ice and Toradol for discomfort. Diagnostic Imaging Diagonstic Imaging: Xray Plain Films/CT/US/NM/MRI: ankle (r) Comments No acute osseous fracture Reviewed: Reviewed by Me Departure Impression Primary Impression: Sprain and strain of ankle Disposition: 01 HOME, SELF-CARE Condition: Stable Departure-Patient Inst. Decision time for Depature: 07:49 Referrals: NO,LOCAL PHYSICIAN (PCP/Family) Primary Care Physician Patient Instructions: Ankle Sprain (DC) Add. Discharge Instructions: Keep applying ice for 20 minutes every 2 hours for the first 2 days. Elevate the foot when not in use. Keep it wrapped with either an Ángel bandage or a neoprene ankle sleeve. Topical creams such as icy hot or Biofreeze can be helpful. Tylenol 1000 mg every 8 hours as necessary for pain. Ibuprofen 800 mg every 8 hours on a schedule for the first week. Follow-up with your primary care doctor or sports director if not seeing some significant improvement in the first 1-2 weeks. Crutches as necessary for the first 1-2 weeks. All discharge instructions reviewed with patient and/or family. Voiced understanding. Work/School Note: Work Release Form Date Seen in the Emergency Department: Jun 07, 2020 Return to Work: Jun 08, 2020 Restrictions: Need Release from Doctor Other Restrictions Listed Below: Minimal right ankle weightbearing until 06/15/20. GERHARD QUICK Jun 07, 2020 07:24
[2020-06-07] MEDS ORDERED: KETOROLAC 60 MG/2 ML VIAL IM ONE (07:30)
[2020-06-07 08:02] VITALS: BP 156/88
[2020-06-07] MEDS ORDERED: CRUT1EAC7 MC (08:03)
--- NOTE | 2020-06-07 08:17 | Diagnostic Imaging Report ---
INDICATION: ankle pain COMPARISON: 10/20/2016. FINDINGS: 3 views of the right ankle were obtained. There is no acute fracture or dislocation. No focal osseous lesions are seen. There is moderate generalized soft tissue swelling and edema. There are no radiopaque foreign bodies. IMPRESSION: 1. Moderate generalized soft tissue swelling and edema of the right ankle, but no evidence of underlying acute fracture or dislocation. Dictated by: Dictated on workstation # [id number]
== END 2020-06-07 08:08 | disposition home or self-care (01) ==
LOC: EDUNIT# 06:17 → ER 06:18
DX: S93.401A Sprain of unspecified ligament of right ankle, initial encounter (principal); S96.911A Strain of unspecified muscle and tendon at ankle and foot level, right foot, initial encounter; F17.210 Nicotine dependence, cigarettes, uncomplicated; X50.1XXA Overexertion from prolonged static or awkward postures, initial encounter; Y93.61 Activity, american tackle football
CPT/HCPCS: 73610